=== PATIENT | female | born 2000 | race Caucasian/White ===

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

== ENCOUNTER 2022-02-04 21:47 | Emergency (ER) | payer OTHER, SELFPAY ==
[2022-02-04 22:03] VITALS: BP 134/98; PULSE 129; RESP 16; TEMP 37.6; O2SAT 99; BMI 32.9
[2022-02-04 22:55] LABS: Microscopic, Urine URINE MICROSCOPIC (MICROSCOPIC)
[2022-02-04 22:59] LABS: Appearance,Urine SL CLOUDY (Clear); Bilirubin,Urine Negative (Negative); Blood, Urine TRACE-I (Negative); Color,Urine YELLOW (Yellow); Glucose,Urine (UA) Negative (Negative); Ketones,Urine Negative (Negative); Leukocyte Esterase,Urine 2+ (Negative); Nitrate,Urine POSITIVE (Negative); PH,Urine 6.5 (5.0-8.5); Protein,Urine Negative (Negative); Urobilinogen,Urine 0.2 EU/dl (0.2)
--- NOTE | 2022-02-04 23:00 | PC.NURSE ---
two unsuccessful attempts to obtain IV access.
[2022-02-04 23:05] LABS: Squamous Epithelial Cell,Urine Occasional #/hpf (0-5)
[2022-02-04 23:06] LABS: Bacteria,Urine 3+ /lpf
[2022-02-04 23:40] LABS: Basophils # 0.2 K/mm3 (0-0.2); Basophils % 1.3 % (0.1-2.0); Eosinophils % 0.3 % (0.1-12.0); Hematocrit 39.9 % (37.0-47.0); Hemoglobin 13.8 g/dL (12.2-16.2); Lymphocytes # 0.8 K/mm3 (0.7-4.5); Lymphocytes % 6.1 % (10-50); Mean Corpuscular HGB Conc 34.7 g/dL (31.8-35.4); Mean Corpuscular Hemoglobin 30.4 pg (27.0-31.2); Mean Corpuscular Volume 87.6 fl (81-99); Mean Platelet Volume 7.7 fl (7.4-10.4); Monocytes # 0.2 K/mm3 (0.1-1.0); Monocytes % 1.8 % (1.7-9.3); Neutrophils % 90.4 % (37.0-80.0); Platelet Count 307 K/mm3 (142-424); Red Blood Count 4.55 M/mm3 (4.20-5.40); Red Cell Distribution Width 13.4 % (11.5-17.5); White Blood Count 12.2 K/mm3 (4.5-13.0)
[2022-02-04 23:42] LABS: Chloride 101 mmol/L (98-107); Potassium 3.5 mmoL/L (3.5-5.1); Sodium 136 mmol/L (136-145)
[2022-02-04 23:45] LABS: Alanine Aminotransferase 17 U/L (12-78); Albumin Level 4.5 g/dl (3.5-5.0); Albumin/Globulin Ratio 1.5 (1.1-1.8); Alkaline Phosphatase 130 U/L (38-126); Anion Gap 10.5 mEq/L (5-15); Aspartate Amino Transferase 31 U/L (14-36); Bilirubin,Total 0.6 mg/dl (0.2-1.3); Blood Urea Nitrogen 8 mg/dl (7-17); Carbon Dioxide 28 mmol/L (22.0-30.0); Creatinine Clearance Estimated 231 mL/min (50-200); Estimated Glomerular Filt Rate 157 ml/min (>60); GFR (African American) 190 ML/MIN (>60); Globulin 3.1 g/dL (1.3-3.2); Glucose 95 mg/dl (74-100); Lactic Acid 0.9 mmol/L (0.7-2.1); MANUAL DIFFERENTIAL MANUAL DIFFERENTIAL (MANUAL DIFF); Total Protein,Serum 7.6 g/dl (6.3-8.2)
--- NOTE | 2022-02-04 23:45 | HMH.EDBACK ---
ED Disposition Clinical Impression: Pyelonephritis, SIRS (systemic inflammatory response syndrome) Disposition: Home, Self-Care Condition on Discharge: Good Instructions: DI for Kidney Infection Additional Instructions: fluids and use meds and call pcp for follow up Prescriptions: levoFLOXacin [Levaquin 500mg tab] 500 mg PO DAILY #7 tab Transmission Status: Pending to [facility] #[id number] Referrals: Demetris Levi MD [Primary Care Provider] - - Critical Care Critical Care Time: No Attestation: On 02/04/22, the high probability of a clinically significant, sudden or life threatening deterioration of the following system(s) required my full and direct attention, intervention and personal management. The time I documented below is in addition to time spent performing reported procedures but includes the following listed in this critical care notation. Medical Decision Making - Medical Records Medical records reviewed: Yes: I reviewed the patient's medical records. - Victoriano Inquiry Pt receiving controlled substance: No Vital Signs: 02/04/22 22:03 Temperature 99.6 F Temperature Source Oral Pulse Rate [Right Brachial] 129 H Respiratory Rate 16 Blood Pressure [Right Arm] 134/98 H Blood Pressure Mean [Right Arm] 110 Blood Pressure Source [Right Arm] Automatic Cuff Blood Pressure Position [Right Arm] Sitting 02 Sat by Pulse Oximetry 99 Oxygen Delivery Method Room Air - Lab Data Lab results reviewed: Yes: I reviewed the patient's lab results. Lab Results 02/04/22 22:45: Urine Color Yellow, Urine Appearance Sl cloudy, Urine pH 6.5, Ur Specific Robertson 1.010, Urine Protein Negative, Urine Glucose (UA) Negative, Urine Ketones Negative, Urine Blood Trace-i, Urine Nitrate Positive, Urine Bilirubin Negative, Urine Urobilinogen 0.2, Ur Leukocyte Esterase 2+ A, Urine RBC 3-5, Urine WBC 5-10, Ur Squamous Epith Cells Occasional, Urine Bacteria 3+ 02/04/22 23:27: WBC 12.2, RBC 4.55, Hgb 13.8, Hct 39.9, MCV 87.6, MCH 30.4, MCHC 34.7, RDW 13.4, Plt Count 307, MPV 7.7, Neut % (Auto) 90.4 H, Lymph % (Auto) 6.1 L, Bledsoe % (Auto) 1.8, Eos % (Auto) 0.3, Baso % (Auto) 1.3, Neut # (Auto) 11.0 H, Lymph # (Auto) 0.8, Bledsoe # (Auto) 0.2, Eos # (Auto) 0.0, Baso # (Auto) 0.2 02/04/22 23:27: Sodium 136, Potassium 3.5, Chloride 101, Carbon Dioxide 28, Anion Gap 10.5, BUN 8, Creatinine 0.50 L, Estimated Creat Clear 231, Estimated GFR 157, Est GFR ( Amer) 190, Glucose 95, Calcium 10.0, Total Bilirubin 0.6, AST 31, ALT 17, Alkaline Phosphatase 130 H, C-Reactive Protein 35.6 H, Total Protein 7.6, Albumin 4.5, Globulin 3.1, Albumin/Globulin Ratio 1.5 02/04/22 23:27: Lactate 0.9 02/04/22 23:27: ESR 25 H 02/04/22 23:27: Procalcitonin 0.137 02/04/22 23:27: Serum HCG, Qual Negative Result diagrams: 02/04/22 23:27 02/04/22 23:27 Orders (Tests/Meds): ED MEDICATIONS Generic Name Dose Route Start Last Admin Trade Name Freq PRN Reason Stop Dose Admin Sodium Chloride 1,000 mls @ 999 mls/hr 02/04/22 23:15 02/04/22 23:15 Sod Chlor 0.9% 1000ml Bag IV 02/05/22 00:15 999 mls/hr .Q1H1M SAMSON Administration Ceftriaxone Sodium 1 gm/ 50 mls @ 100 mls/hr 02/04/22 23:45 02/04/22 23:50 Sodium Chloride IV 02/18/22 23:44 100 mls/hr Q24H SAMSON Administration Sodium Chloride 1,000 mls @ 999 mls/hr 02/05/22 00:30 02/05/22 00:25 Sod Chlor 0.9% 1000ml Bag IV 02/05/22 01:30 999 mls/hr .Q1H1M SAMSON Administration Sodium Chloride 10 ml 02/04/22 23:15 Sodium Chloride 0.9% 10ml Flush Syringe IV 03/06/22 23:14 NEEDED PRN Maintain IV Site Discontinued Medications Generic Name Dose Route Start Last Admin Trade Name Freq PRN Reason Stop Dose Admin Acetaminophen/Codeine Phosphate 1 packet 05/11/22 00:57 Acetaminophen 300mg W/Codeine 30mg Take Home Pack (6) PO 02/05/22 00:58 ONCE ONE Iopamidol 75 ml 02/05/22 00:19 02/05/22 00:20 Iopamidol-370 (76%);100ml Bottle IV 02/05/22 00:20
[2022-02-04 23:51] LABS: C-Reactive Protein 35.6 mg/L (0-4)
[2022-02-04 23:53] LABS: HCG Qualitative, Serum Negative (Negative)
--- NOTE | 2022-02-05 | CT_ITS ---
PROCEDURE INFORMATION: Exam: CT Abdomen And Pelvis With Contrast Exam date and time: 02/05/2022 12:11 AM Age: 22 years old Clinical indication: Abdominal pain TECHNIQUE: Imaging protocol: Computed tomography of the abdomen and pelvis with contrast. Radiation optimization: All CT scans at this facility use at least one of these dose optimization techniques: automated exposure control; mA and/or kV adjustment per patient size (includes targeted exams where dose is matched to clinical indication); or iterative reconstruction. Contrast material: ISOVUE; Contrast volume: 75 ml; Contrast route: IV; COMPARISON: No relevant prior studies available. FINDINGS: Liver: Normal. No mass. Gallbladder and bile ducts: Normal. No calcified stones. No ductal dilation. Pancreas: Normal. No ductal dilation. Spleen: Normal. No splenomegaly. Adrenal glands: Normal. No mass. Kidneys and ureters: See Urinary bladder finding. Stomach and bowel: Mild constipation. No colitis. No small bowel obstruction. Appendix: Normal appendix. Intraperitoneal space: Unremarkable. No free air. No significant fluid collection. Vasculature: Unremarkable. No abdominal aortic aneurysm. Lymph nodes: Unremarkable. No enlarged lymph nodes. Urinary bladder: There is bilateral hydronephrosis and ureteral dilatation which could be due to back pressure from the distended urinary bladder. No ureteral stones are seen. There is subtle enhancement of the right renal urothelium which could indicate mild pyelonephritis. Reproductive: 3.7 cm left ovarian cyst. Bones/joints: Unremarkable. No acute fracture. Soft tissues: Unremarkable. IMPRESSION: 1. Subtle right pyelonephritis. 2. 3.7 cm left ovarian cyst. 3. Moderately distended urinary bladder resulting in mild bilateral hydronephrosis and ureteral dilatation but no obstructing stones are identified
[2022-02-05 00:03] LABS: Procalcitonin 0.137 ng/mL (0.0-2.0)
[2022-02-05 00:10] LABS: Erythrocyte Sedimentation Rate 25 mm/hr (0-20)
--- NOTE | 2022-02-05 00:16 | PC.NURSE ---
patient to CT
[2022-02-05 01:14] LABS: Eosinophils % 1 % (0-3); Lymphocytes % 6 % (10-50); Neutrophils % 93 % (42-76); Platelet Estimate Normal; RBC Morphology Normal; Total Cells Counted 100
[2022-02-05 01:19] VITALS: BP 111/73; PULSE 78; RESP 18; TEMP 37.2; O2SAT 98
== END 2022-02-05 01:24 | disposition home or self-care (01) ==
PROVIDERS: Emergency Provider Emergency Medicine; PCP Internal Medicine Adolescent Medicine
DX: N12 Tubulo-interstitial nephritis, not specified as acute or chronic (principal); M54.50 Low back pain, unspecified; R65.10 Systemic inflammatory response syndrome (SIRS) of non-infectious origin without acute organ dysfunction; F17.290 Nicotine dependence, other tobacco product, uncomplicated; R11.0 Nausea; Z79.899 Other long term (current) drug therapy
CPT/HCPCS: 74177; 80053; 81001; 83605; 84145; 84703; 85007; 85025; 85651; 86140; 87040; 87077; 87086; 87088; 87186; 96361; 96374; 96375; 99285; J0696; Q9967

== ENCOUNTER → 2022-07-01 13:43 | Outpatient (CLI) | payer BC, OTHER, SELFPAY ==
--- NOTE | 2022-07-01 13:47 | CA_ITS ---
APPROVED REPORT EXAM: Comprehensive 2D, Doppler, and color-flow Echocardiogram Decision Support Manager: Mirella Shirley, RCS, RVS Ht: 5 ft 3 in Wt: 178lbs BSA: 1.84 BP: 134/98 mmHg Indications: SOB, Smoker 2D Dimensions Aortic Root 2.50 cm F: 2.7 - 3.3 LA Volume 43.40 mL Left Atrium 2.07 cm F: 2.7 - 3.8 LA Volume Index [id number] mL/m2 (M/F) 16-34 LVOT 1.99 cm (M/F) 1.5-2.5 M-Mode Dimensions RVDd 2.40 cm (0.9-2.6) LA Diam 3.05 cm (1.9-4.0) LVDd 4.37 cm (3.5-5.7) Ao Diam 2.58 cm (2.0-3.7) LVDs 3.19 cm (3.5-5.7) IVSd 0.93 cm (0.6-1.1) PWd 0.97 cm (0.6-1.1) EF (Teich) 53.00% EPSs 0.57 cm FS 27.00% EDV (Teich) 86.30 mL TAPSE 1.79 (<1.7) ESV (Teich) 40.60 mL LV Diastology E Decel Time 263.00 (160-240 msec) E/A Ratio 1.42 MED E' 11.60 (< 7 cm/sec) MED A' 8.20 cm/s E'/MED E' Ratio 4.95 (>14) LAT E' 15.00 (<10 cm/sec) LAT A' 9.20 cm/s E/LAT E' Ratio 3.83 (>14) Aortic Valve LVOT Max 87.00 (70-110 cm/s) LVOT VTI 17.26 cm AoV Peak Sergei. 127.00 (50-130 cm/s) AO Peak GR. 6.50 mmHg AO Mean GR. 3.20 (<5 mmHg) AO VTI 23.25 (18-25 cm) HARLAN (VTI) 2.31 (2.5-4.5 cm2) Mitral Valve MV A Velocity 40.00 (40-130 cm/s) E/A Ratio 1.42 MV Decel. Time 263.00 (160-240 ms) Pulmonary Valve PV Peak Velocity 82.00 (50-150 cm/s) Tricuspid Valve TR P. Velocity 187.00 cm/s RAP Estimate 10.00 mmHg RVSP 24.00 mmHg Left Ventricle Left atrium is normal size, left ventricle is normal size overall preserved left ventricular systolic function, estimated ejection fraction 55% with no regional wall motion abnormality, diastolic parameters are within normal range. Right Ventricle Right atrium and right ventricle are normal size and contractility. Aortic Valve Aortic valve is grossly normal there is no aortic stenosis aortic insufficiency. Mitral Valve Mitral valve grossly normal, there is trace mitral regurgitation. Tricuspid Valve Tricuspid valve grossly normal, there is no significant tricuspid regurgitation. Pulmonic Valve Pulmonic valve is poorly visualized. Great Vessels Aortic root is normal size. Inferior vena cava is normal size with normal inspiratory collapse. Pericardium No significant pericardial effusion noted. Conclusion 1. Normal left ventricular size preserved left ventricular systolic function, estimated ejection fraction 55% with no regional wall motion abnormality, diastolic parameters are within normal range. 2. Trace mitral regurgitation. 3. No significant pericardial effusion. 4. Inferior vena cava is normal size with normal inspiratory collapse. Electronically signed by : Seth Vasquez MD 07/02/2022 06:14:06
== END ==
PROVIDERS: PCP Nurse Practitioner Family; Visit Provider Nurse Practitioner Family
DX: R06.02 Shortness of breath (principal); R53.83 Other fatigue
CPT/HCPCS: 93306

== ENCOUNTER 2022-09-29 10:39 | Emergency (ER) | payer BC, OTHER, SELFPAY ==
[2022-09-29 11:40] VITALS: BP 109/81; PULSE 74; RESP 17; TEMP 36.7; O2SAT 98; BMI 34.9
--- NOTE | 2022-09-29 12:06 | EXP.UTC ---
Discharge Plan Disposition Patient Disposition: Home, Self-Care Condition: Good Prescriptions Prescriptions: New amoxicillin 875 mg tablet 875 mg PO Q12H 10 Days Qty: 20 0RF fluticasone propionate [Flonase Allergy Relief] 50 mcg/actuation spray,suspension 1 spray intranasal DAILY Qty: 16 0RF Rx Instructions: administer into each nostril No Action norgestimate-ethinyl estradiol [Tri-Sprintec (28)] 1 EACH tablet See Rx Instructions .Route .COMPLEX Rx Instructions: TAKE 1 TABLET BY MOUTH EVERY DAY levofloxacin 500 MG tablet 500 mg PO DAILY Qty: 7 0RF Referrals Follow up/Referrals: Ambreen Bella APRN [Primary Care Provider] - See instructions Clinical Impressions Clinical Impression: Otitis media Instructions Patient Instructions: Middle Ear Infection Discharge ED Provider: Lolita Peralta [facility] General Stated complaint: LT ear clogged, sore throat, congestion, drainage Mode of Arrival: Ambulatory Source of Information: Patient Limitations: No Limitations Time Seen by Provider: 09/29/22 12:07 Description of Symptoms (Recalled from Triage Doc. by RN): PATIENT C/O FEELING SICK AND LEFT EAR FEELING CLOGGED SINCE THURSDAY HEENT Symptoms (Recalled from RN notes): Yes Resp Symptoms (Recalled from RN notes): No Skin Symptoms (Recalled from RN notes): No MS Symptoms (Recalled from RN notes): No Functional Status (Recalled from RN notes): WNL History of Present Illness Provider Complaint: Patient states that she feels like her left ear is clogged up and hurting and feels like she may have a sinus infection States that she has been having pain and feeling of fullness in her left ear for over a week that has continued to get worse Related Data Home Medications Medication Instructions Recorded Confirmed norgestimate-ethinyl estradiol See Rx Instructions .Route 02/04/22 02/04/22 0.18 mg/0.215mg/0.25mg-35 .COMPLEX control mcg(28)tablet (Tri-Sprintec (28)) Previous Rx's Medication Instructions Recorded levofloxacin 500 mg tablet 500 mg PO DAILY #7 tabs 02/05/22 amoxicillin 875 mg tablet 875 mg PO Q12H 10 days #20 tabs 09/29/22 fluticasone propionate 50 1 spray intranasal DAILY #16 grams 09/29/22 mcg/actuation nasal spray,suspension (Flonase Allergy Relief) Allergies Allergy/AdvReac Type Severity Reaction Status Date / Time No Known Allergies Allergy Verified 07/30/21 11:28 Worker's Comp Is this a Worker's Comp case?: No [facility] Disclaimer: The information contained in this section may have been updated after the patient was seen, as this information can be updated by other users. Medical History (Updated 09/29/22 @ 12:14 by Lolita Peralta APRN) Anxiety Hypertension Migraine Urinary tract infection Social History (Updated 09/29/22 @ 11:52 by Esha Orellana RN) Smoking Status: Current every day smoker tobacco type: e-cigarettes alcohol intake: never current occupational status: employed Travel in the last 8 weeks: None ROS Obtained: Yes All systems reviewed & no additional complaints except as documented and Yes Systems reviewed as appropriate & no additional complaints except as documented Constitutional Constitutional: Reports system reviewed and no additional complaints, except as documented and Reports as per HPI ENT Ears, Nose, Mouth, and Throat: Reports system reviewed and no additional complaints, except as documented, Reports as per HPI, Reports otalgia, Reports nasal congestion and Reports sinus pressure Cardiovascular Cardiovascular: Reports system reviewed and no additional complaints, except as documented and Reports as per HPI Respiratory Respiratory: Reports system reviewed and no additional complaints, except as documented and Reports as per HPI Gastrointestinal Gastrointestingal: Reports system reviewed and no additional complaints, except as documented and as per HPI Physical Exam General General appeara
[2022-09-29 12:15] VITALS: BP 109/81; PULSE 74; RESP 17; TEMP 36.7; O2SAT 98
== END 2022-09-29 12:18 | disposition home or self-care (01) ==
PROVIDERS: Emergency Provider Nurse Practitioner; PCP Nurse Practitioner Family
DX: H66.90 Otitis media, unspecified, unspecified ear (principal)
CPT/HCPCS: 99212; G0463

== ENCOUNTER → 2023-03-03 23:22 | Outpatient (CLI) | payer BC, OTHER, SELFPAY ==
[2023-03-03 19:18] LABS: Basophils # 0.1 K/mm3 (0-0.2); Basophils % 0.9 % (0.1-2.0); Eosinophils # 0.1 K/mm3 (0.0-0.4); Eosinophils % 1.3 % (0.1-12.0); Hematocrit 40.2 % (37.0-47.0); Lymphocytes # 2.5 K/mm3 (0.7-4.5); Lymphocytes % 38.3 % (10-50); Mean Corpuscular HGB Conc 32.5 g/dL (31.8-35.4); Mean Corpuscular Hemoglobin 29.2 pg (27.0-31.2); Mean Corpuscular Volume 89.9 fl (81-99); Mean Platelet Volume 8.7 fl (7.4-10.4); Monocytes # 0.3 K/mm3 (0.1-1.0); Neutrophils # 3.6 K/mm3 (1.8-7.8); Neutrophils % 54.4 % (37.0-80.0); Platelet Count 310 K/mm3 (142-424); Red Blood Count 4.47 M/mm3 (4.20-5.40); Red Cell Distribution Width 13.2 % (11.5-17.5); White Blood Count 6.6 K/mm3 (4.8-10.8)
[2023-03-03 19:51] LABS: Alanine Aminotransferase 22 U/L (12-78); Albumin Level 4.4 g/dl (3.5-5.0); Albumin/Globulin Ratio 1.5 (1.1-1.8); Alkaline Phosphatase 96 U/L (38-126); Anion Gap 13.9 mEq/L (5-15); Aspartate Amino Transferase 31 U/L (14-36); Bilirubin,Total 0.2 mg/dl (0.2-1.3); Blood Urea Nitrogen 8 mg/dl (7-17); Calcium 9.2 mg/dl (8.4-10.2); Carbon Dioxide 23 mmol/L (22.0-30.0); Chloride 105 mmol/L (98-107); Chol/HDL Ratio 2.1 (1-3.5); Cholesterol 201 mg/dl (140-200); Estimated Glomerular Filt Rate 201 ml/min (>60); GFR (African American) 244 ML/MIN (>60); Globulin 2.9 g/dL (1.3-3.2); Glucose 81 mg/dl (74-100); HDL Cholesterol 94 mg/dl (40-60); Potassium 3.9 mmoL/L (3.5-5.1); Sodium 138 mmol/L (136-145); Total Protein,Serum 7.3 g/dl (6.3-8.2); Triglycerides 82 mg/dl (30-150); VLDL Cholesterol 16 mg/dL (0-40)
[2023-03-03 20:09] LABS: Free T4 (Free Thyroxine) 1.13 ng/dl (0.78-2.19)
[2023-03-03 20:10] LABS: 25-OH Vitamin D, Total 26.8 ng/mL (30-100)
[2023-03-03 20:14] LABS: Direct LDL Cholesterol 106.32 mg/dL (100-129)
[2023-03-03 20:22] LABS: Thyroid Stimulating Hormone 0.68 uIU/mL (0.465-4.68)
--- NOTE | 2023-03-13 13:26 | PC.NURSE ---
Patient was scheduled for a HST on 03/13 but cancelled and will call back to reschedule at a later date.
== END ==
PROVIDERS: PCP Emergency Medicine; Visit Provider Emergency Medicine
DX: R68.89 Other general symptoms and signs (principal); E55.9 Vitamin D deficiency, unspecified; Z79.899 Other long term (current) drug therapy
CPT/HCPCS: 80053; 80061; 82306; 84439; 84443; 85025

== ENCOUNTER 2024-04-21 07:52 | Emergency (ER) | payer BC, SELFPAY ==
[2024-04-21 07:53] VITALS: BP 120/92; PULSE 91; RESP 17; TEMP 37.1; O2SAT 99; BMI 34.7
--- NOTE | 2024-04-21 07:58 | PC.NURSE ---
dr mejía at bedside
--- NOTE | 2024-04-21 08:05 | US_ITS ---
PROCEDURE INFORMATION: Exam: US Duplex Artery or Vein of the Abdominal and/or Reproductive Organs, Limited Ovaries Exam date and time: 04/21/2024 8:21 AM Age: 24 years old Clinical indication: Pelvic pain; Additional info: Rlq pain 10/10, vomiting, cysts history TECHNIQUE: Imaging protocol: Real-time duplex ultrasound scan of the arterial or venous flow with hunter scale, color Doppler flow and spectral waveform analysis with image documentation. Limited duplex exam focused on the ovaries. Duplex exam was performed to evaluate for torsion and other vascular conditions. COMPARISON: CT ABDOMEN PELVIS W CON 02/05/2022 12:11 AM FINDINGS: Right ovary/adnexa: Duplex blood flow within the right ovary with color Doppler and spectral waveforms. No evidence of torsion. Left ovary/adnexa: Duplex blood flow within the left ovary with color Doppler and spectral waveforms. No evidence of torsion. IMPRESSION: 1. No evidence of ovarian torsion. 2. See complete ultrasound report below. PROCEDURE INFORMATION: Exam: US Pelvis, Transvaginal, Non-Obstetric Exam date and time: 04/21/2024 8:21 AM Age: 24 years old Clinical indication: Pelvic pain; Additional info: Rlq pain 10/10, vomiting, cysts history TECHNIQUE: Imaging protocol: Real-time transvaginal pelvic (non-obstetric) ultrasound with image documentation. Transvaginal imaging was used for better evaluation of the endometrium, adnexa, and/or cervix. COMPARISON: CT ABDOMEN PELVIS W CON 02/05/2022 12:11 AM FINDINGS: Uterus: Uterus measures 6.5 x 2.5 x 4.0 cm. No myometrial mass. Normal endometrium measuring 6-7 mm. Cervix is unremarkable. Right ovary/adnexa: Right ovary measures 3.4 x 1.8 x 1.9 cm for a volume of 6.3 mL. Small follicles. Blood flow present. No adnexal mass. Left ovary/adnexa: Left ovary measures 3.3 x 2.0 x 1.6 cm for a volume of 5.2 mL. Small follicles. Blood flow present. No adnexal mass. Urinary bladder: Urinary bladder is decompressed. Intraperitoneal space: No free fluid. IMPRESSION: No acute findings.
--- NOTE | 2024-04-21 08:09 | ED_ITS ---
Discharge Plan Disposition Patient Disposition: Home, Self-Care Prescriptions Prescriptions: No Action metformin 500 mg tablet extended release 24 hr 500 mg PO DAILY Qty: 30 2RF phentermine [Adipex-P] 37.5 mg tablet 37.5 mg PO DAILY Qty: 30 0RF Rx Instructions: must administer 30 minutes before or 1-2 hours after breakfast norgestimate-ethinyl estradiol [Tri-Sprintec (28)] 0.18/0.215/0.25 mg-35 mcg (28) tablet 1 tab PO DAILY Qty: 84 0RF Referrals Follow up/Referrals: Ambreen Leung APRN [Primary Care Provider] - See instructions Activity Restrictions/Add. Instructions Additional Instructions/Restrictions: Call your family doctor to establish care for this visit to the emergency department and schedule follow-up within 48 hours to ensure improvement. If you have any worsening of your condition or any other concerning signs or symptoms, return to the emergency department or your primary care doctor for further evaluation. Take Tylenol 1000 mg every 6 hours (4 times daily) and ibuprofen 400 mg every 6 hours (4 times daily) as needed with food and water to prevent GI upset and kidney damage. Clinical Impressions Clinical Impression: Right lower quadrant abdominal pain, Hematuria Stand Alone Forms Stand Alone Forms: Work/School Release Instructions Patient Instructions: DI for Acute Abdominal Pain Print Language Print Language: Kittitian Discharge ED Provider: Bryn Rosenberg General Adult HPI General Chief complaint: Abdominal Pain Stated complaint: right side pain, vomiting Time Seen by Provider: 04/21/24 07:55 History of Present Illness HPI narrative: Please note that above description of symptoms, in this electronic medical record under categorization of recalled from ER triage doctor by RN are reflective of an initial nursing assessment, however, is not reflective of my full history and physical exam that was personally taken and clarified. Consequentially, this preceding description of symptoms, which may include the patient's categorized chief complaint in the EMR, do not reflect my personal clinical impression, and the ultimate description of history of present illness and patient stated complaints should be deferred to this section of the note. Unless stated otherwise or congruent with this section of the note, additional signs, symptoms, or incongruence should be interpreted as inaccurate with my clinical impression. Related Data Previous Rx's ?Medication ?Instructions ?Recorded metformin 500 mg tablet,extended 500 mg PO DAILY #30 tabs 07/14/23 release 24 hr phentermine 37.5 mg tablet 37.5 mg PO DAILY #30 tabs 08/14/23 (Adipex-P) norgestimate-ethinyl estradiol 1 tab PO DAILY #84 tabs 12/18/23 0.18 mg/0.215mg/0.25mg-35 mcg(28)tablet (Tri-Sprintec (28)) Allergies Allergy/AdvReac Type Severity Reaction Status Date / Time No Known Allergies Allergy Verified 08/14/23 10:08 [facility] Disclaimer: The information contained in this section may have been updated after the patient was seen, as this information can be updated by other users. Medical History Anxiety Hypertension Migraine Urinary tract infection Social History (Updated 07/14/23 @ 16:09 by DANY Vila) Smoking Status: Current every day smoker tobacco type: e-cigarettes alcohol intake: never current occupational status: employed Travel in the last 8 weeks: None ROS Obtained: Yes All systems reviewed & no additional complaints except as documented Physical Exam General General appearance: alert and in no apparent distress Head Head exam: atraumatic and normocephalic Eye Eye exam: Present normal appearance, PERRL and EOMI Neck Neck exam: Present normal inspection, full ROM and trachea midline Respiratory Respiratory exam: Present normal lung sounds bilaterally; Absent respiratory distress, wheezes, stridor, accessory muscle use or prolonged expiratory phase Cardiovascular Cardiovascular exam: Present regular rate, normal rhythm and other (Pulses equal symmetric in upper and lower extremities) Abdominal Exam Abdominal exam: Present soft; Absent distention, tenderness, guarding, rebound, rigidity or pulsatile mass Extremities Exam Extremities exam: Absent edema Neurological Exam Neurological exam: Present alert, oriented X3 and CN II-XII intact; Absent motor sensory deficit Skin Skin exam: Present warm and dry; Absent diaphoresis or erythema Medical Decision Making Medical Records Medical records reviewed: Yes I reviewed the patient's medical records. Victoriano Inquiry Pt receiving controlled substance: No Victoriano was queried for this patient: No Vital Signs: 04/21/24 07:53 04/21/24 09:06 04/21/24 09:30 Temperature 98.7 F Temperature Source Oral Pulse Rate 70 48 L Pulse Rate [Left] 91 H Respiratory Rate 17 Blood Pressure 124/95 H 119/84 Blood Pressure [Right Arm] 120/92 H Blood Pressure Mean 104 95 Blood Pressure Mean [Right Arm] 101 Blood Pressure Source [Right Arm] Automatic Cuff 02 Sat by Pulse Oximetry 99 98 99 Oxygen Delivery Method Room Air Room Air Room Air 04/21/24 10:31 Temperature 98.7 F Temperature Source Pulse Rate 68 Pulse Rate [Left] Respiratory Rate 16 Blood Pressure 127/94 H Blood Pressure [Right Arm] Blood Pressure Mean Blood Pressure Mean [Right Arm] Blood Pressure Source [Right Arm] 02 Sat by Pulse Oximetry Oxygen Delivery Method Lab Data Lab Results 04/21/24 07:55: Urine Color Yellow, Urine Appearance Sl cloudy, Urine pH 6.0, Ur Specific Railroad 1.020, Urine Protein Negative, Urine Glucose (UA) Negative, Urine Ketones Negative, Urine Blood 3+, Urine Nitrate Negative, Urine Bilirubin Negative, Urine Urobilinogen 0.2, Ur Leukocyte Esterase Negative, Urine RBC Tntc, Urine WBC Occasional, Ur Squamous Epith Cells None, Urine Bacteria Trace 04/21/24 08:10: WBC 6.3, RBC 4.31, Hgb 13.8, Hct 38.3, MCV 88.9, MCH 31.9 H, M CHC 35.9 H, RDW 13.8, Plt Count 269, MPV 7.8, Neut % (Auto) 62.5, Lymph % (Auto) 30.7, Shoshone % (Auto) 4.4, Eos % (Auto) 1.4, Baso % (Auto) 1.0, Neut # (Auto) 4.0, Lymph # (Auto) 2.0, Shoshone # (Auto) 0.3, Eos # (Auto) 0.1, Baso # (Auto) 0.1, Sodium 140, Potassium 3.7, Chloride 109 H, Carbon Dioxide 23, Anion Gap 11.7, BUN 10, Creatinine 0.60, Estimated Creat Clear 200, Estimated GFR 125, Est GFR ( Amer) 151, Glucose 92, Calcium 9.9, Total Bilirubin 0.4, AST 25, ALT 22, Alkaline Phosphatase 87, Total Protein 7.3, Albumin 4.3, Globulin 3.0, Albumin/Globulin Ratio 1.4, Lipase 98, HCG, Quant < 2 04/21/24 08:10 04/21/24 08:10 Orders (Tests/Meds): ED MEDICATIONS Discontinued Medications Generic Name Dose Route Start Last Admin Trade Name Ryanne PRN Reason Stop Dose Admin Ketorolac Tromethamine 15 mg 04/21/24 09:01 04/21/24 09:20 Ketorolac 30mg/Ml Vial IV 04/21/24 09:02 15 mg ONCE ONE Administration ORDERS Category Date Time Status CT abdomen pelvis wo con Stat Cat Scan 04/21/24 09:01 Completed US transvaginal Stat Exams 04/21/24 08:05 Completed CBC w/Auto Diff [Complete Blood Count Auto Diff] Stat Lab 04/21/24 08:10 Completed CMP [Comprehensive Metabolic Panel] Stat Lab 04/21/24 08:10 Completed HCG,Quantitative Stat Lab 04/21/24 08:10 Completed Lipase Stat Lab 04/21/24 08:10 Completed UA [Urinalysis and Microscopic] Stat Lab 04/21/24 07:55 Completed Medical Decision Narrative: Is a 24-year-old female with history of ovarian cyst, UTI, currently on Depo injection for prevention presenting with right-sided abdominal pain. Patient states that around 6 AM today, 04/21, she was awakened from sleep by severe pain in her right lower quadrant/right side. It was 10 out of 10 and initial onset, associated with nonbloody, nonbilious vomiting. It lasted for about 45 minutes to an hour, then completely abated without intervention. She states last time she had pain that was similar to this was a ruptured ovarian cyst on the right side. States that this was worse in intensity and different and that it woke her up from sleep. No fevers, chills, dysuria, hematuria, frequency, urgency, change in bowel habits, trauma to the area, overlying skin changes, or any other concerns. Patient states there is no chance of and no history of STDs. History was obtained via conversation with patient. On arrival, patient hemodynamically stable, alert, oriented x4, appropriate, GCS 15, moving all extremities spontaneously, pupils equal and reactive to light. Full physical exam performed and significant for very well-appearing female no acute distress. Nontachycardic, normotensive, appears to be resting comfortably. Patient's abdomen is soft, nontender, nondistended. No tenderness to deep palpation on my exam. No flank tenderness. No overlying skin changes. Differential includes PUD, gastritis, enteritis, gastroenteritis, pancreatitis, SBO, colitis, diverticulitis, nephrolithiasis, UTI, , cholecystitis, appendicitis, hepatitis, torsion, among others. Patient placed on continuous cardiac monitoring and continuous pulse ox with initial blood pressure 120/92, heart rate 91, saturation 99% on room air. Patient was given nothing for symptomatic management and correction of underlying abnormalities, although Toradol and Zofran offered. Shortly after giving urine sample, patient states that when she was urinating, a large blood clot passed and she has never had that before. Urinated without issue or other symptoms. Patient states she is currently completely asymptomatic and declining meds at this time. Workup independently interpreted and significant for normal white blood count, normal hemoglobin, normal platelet count. Nonactionable CBC overall. Kidney function normal, LFTs normal. Lipase negative, hCG negative. Urinalysis with blood, no evidence of infection. Vaginal ultrasound without acute torsion or ovarian pathology. No free fluid in the cul-de-sac. CT of the abdomen pelvis withNo evidence of stone, patient's right ureter is mildly dilated as compared to the left. No stone in the bladder. Appendix appears normal. See radiology read for full review of final results. On reevaluation, patient resting comfortably, states that she has a cramping pain. Toradol administered. On reevaluation, patient states that she has no pain or discomfort at this time. Given patient presentation, workup, history, this most likely represents resolved nephrolithiasis. Given negative Plata sign, no history of overt right upper quadrant pain, normal LFTs likely to be cholecystitis or choledocholithiasis. Also less likely to be perihepatitis given history, workup and exam. Because patient has hematuria, I do feel it is also less likely to be ovarian torsion given negative ultrasound and no free fluid. Because patient at baseline without signs or symptoms of clinical decompensation, deemed appropriate for discharge. Results were relayed to patient who voiced understanding and were agreeable to outpatient management and follow up. I discussed my clinical impression with patient and answered all questions. At this time, the evidence for any other entities in the differential is insufficient to warrant any further testing or ED observation. This was explained as well. Advisory was given that persistent or worsening symptoms require further evaluation. I confirmed the understanding of this discussion. Machine Oiler disclaimer Much of this encounter note is an electronic donor technician spoken language to printed text. Electronic donor technician of the spoken language may permit errors. Although I have reviewed the note, some errors may still exist. Critical Care Critical Care Time Critical Care Time: No
[2024-04-21 08:10] LABS: Microscopic, Urine URINE MICROSCOPIC (MICROSCOPIC)
[2024-04-21 08:14] LABS: Appearance,Urine SL CLOUDY (Clear); Bilirubin,Urine Negative (Negative); Blood, Urine 3+ (Negative); Color,Urine YELLOW (Yellow); Glucose,Urine (UA) Negative (Negative); Ketones,Urine Negative (Negative); Leukocyte Esterase,Urine Negative (Negative); Nitrate,Urine Negative (Negative); Protein,Urine Negative (Negative); Urobilinogen,Urine 0.2 EU/dl (0.2)
[2024-04-21 08:21] LABS: Bacteria,Urine Trace /lpf; RBC,Urine TNTC #/hpf (0-3); WBC,Urine Occasional #/hpf (0-3)
--- NOTE | 2024-04-21 08:25 | PC.NURSE ---
pt is at ultrasound
[2024-04-21 08:29] LABS: Alanine Aminotransferase 22 U/L (12-78); Albumin Level 4.3 g/dl (3.5-5.0); Albumin/Globulin Ratio 1.4 (1.1-1.8); Alkaline Phosphatase 87 U/L (38-126); Anion Gap 11.7 mEq/L (5-15); Aspartate Amino Transferase 25 U/L (14-36); Bilirubin,Total 0.4 mg/dl (0.2-1.3); Blood Urea Nitrogen 10 mg/dl (7-17); Calcium 9.9 mg/dl (8.4-10.2); Carbon Dioxide 23 mmol/L (22.0-30.0); Chloride 109 mmol/L (98-107); Creatinine Clearance Estimated 200 mL/min (50-200); Estimated Glomerular Filt Rate 125 ml/min (>60); GFR (African American) 151 ML/MIN (>60); Glucose 92 mg/dl (74-100); Lipase 98 U/L (23-300); Potassium 3.7 mmoL/L (3.5-5.1); Sodium 140 mmol/L (136-145); Total Protein,Serum 7.3 g/dl (6.3-8.2)
[2024-04-21 08:31] LABS: Basophils # 0.1 K/mm3 (0-0.2); Eosinophils # 0.1 K/mm3 (0.0-0.4); Eosinophils % 1.4 % (0.1-12.0); Hematocrit 38.3 % (37.0-47.0); Hemoglobin 13.8 g/dL (12.2-16.2); Lymphocytes % 30.7 % (10-50); Mean Corpuscular HGB Conc 35.9 g/dL (31.8-35.4); Mean Corpuscular Hemoglobin 31.9 pg (27.0-31.2); Mean Corpuscular Volume 88.9 fl (81-99); Mean Platelet Volume 7.8 fl (7.4-10.4); Monocytes # 0.3 K/mm3 (0.1-1.0); Monocytes % 4.4 % (1.7-9.3); Neutrophils % 62.5 % (37.0-80.0); Platelet Count 269 K/mm3 (142-424); Red Blood Count 4.31 M/mm3 (4.20-5.40); Red Cell Distribution Width 13.8 % (11.5-17.5); White Blood Count 6.3 K/mm3 (4.8-10.8)
--- NOTE | 2024-04-21 08:32 | PC.NURSE ---
pt arrived back to room
[2024-04-21 08:51] LABS: HCG,Quantitative < 2 mIU/ml (0-5.42)
--- NOTE | 2024-04-21 09:01 | CT_ITS ---
FINAL REPORT TECHNIQUE: Axial images through the abdomen and pelvis were performed without contrast. This study was performed with techniques to keep radiation doses as low as reasonably achievable, (ALARA). Individualized dose reduction techniques using automated exposure control or adjustment of mA and/or kV according to the patient's size were employed. CLINICAL HISTORY: concern for R sided stone, pain COMPARISON: 02/05/2022 FINDINGS: Abdomen: Lung bases are clear. Liver, spleen, pancreas and adrenal glands have a normal CT appearance in their limited unenhanced state. The gallbladder is normal. The kidneys show no stone disease or obstruction. No obvious renal mass is present. No ureteral stones are present. Pelvis: The appendix is normal. The uterus and ovaries are unremarkable. No distal ureteral stones are seen. Bladder is unremarkable. No fluid collection or adenopathy is seen. IMPRESSION: No evidence of upper urinary tract stone disease or obstruction Reviewed, Interpreted and Dictated by Mirta Estes MD Transcribed by Lilly Monique Authenticated and [facility]
[2024-04-21 09:06] VITALS: BP 124/95; PULSE 70; O2SAT 98
[2024-04-21] MEDS: KETOROLAC 30MG/ML VIAL 15 MG IV (09:20)
--- NOTE | 2024-04-21 09:23 | PC.NURSE ---
pt returned from ct
[2024-04-21 09:30] VITALS: BP 119/84; PULSE 48; O2SAT 99
--- NOTE | 2024-04-21 10:19 | PC.NURSE ---
DR VALDES AT BEDSIDE TO UPDATE PT
[2024-04-21 10:31] VITALS: BP 127/94; PULSE 68; RESP 16; TEMP 37.1
== END 2024-04-21 10:33 | disposition home or self-care (01) ==
PROVIDERS: Emergency Provider Emergency Medicine; PCP Nurse Practitioner Family
DX: R10.31 Right lower quadrant pain (principal); R31.9 Hematuria, unspecified
CPT/HCPCS: 74176; 76830; 80053; 81001; 83690; 84702; 85025; 96374; 99285; J1885

== ENCOUNTER 2025-05-14 08:34 | Outpatient (CLI) | payer OTHER, SELFPAY ==
--- OUTSIDE RECORDS SUMMARY | 2025-05-16 08:59 | XMS_ITS | Clinical Summary ---
Author Organization Healthcare Address [address] [id number] Care Team Providers Care Apparel Embroidery Digitizer Name Role Phone Ambreen Bella APRN Primary Care Provider [phone] Allergies No known active allergies Medications propranolol (Inderal) 40 MG tablet Take 40 mg by mouth 2 (two) times a day. 11/25/2022 Active Tri-Sprintec 0.18/0.215/0.25 MG-35 MCG tablet Take 1 tablet by mouth 1 (one) time each day. 11/25/2022 Active Social History Tobacco Use Types Packs/Day Years Used Date Smoking Tobacco: Never Smokeless Tobacco: Never Alcohol Use Standard Drinks/Week Comments Never 0 (1 standard drink = 0.6 oz pur e alcohol) PHQ-2 Answer Date Recorded Patient Health Questionnaire-2 Score 0 12/03/2022 PHQ-2A Answer Date Recorded Patient Health Questionnaire-2 Score 0 12/03/2022 Comments No Sex and Gender Information Value Date Recorded Sex Assigned at Not on file Legal Sex Female 6:52 PM EDT Gender Identity Not on file Sexual Orientation Not on file Last Filed Vital Signs Vital Sign Reading Time Taken Comments Blood Pressure 126/88 12/03/2022 9:42 AM EST Pulse 53 12/03/2022 9:42 AM EST Temperature 36.6 C (97.8 F) 12/03/2022 9:23 AM EST Respiratory Rate 18 12/03/2022 9:23 AM EST Oxygen Saturation 99% 12/03/2022 9:23 AM EST Inhaled Oxygen Concentration - - Weight 86.5 kg (190 lb 11.2 oz) 12/03/2022 9:23 AM EST Height 157.5 cm (5' 2 ) 12/03/2022 9:23 AM EST Body Mass Index 34.88 12/03/2022 9:23 AM EST Plan of Treatment Health Maintenance Due Date Last Done Comments [facility]-Depression Screening 2002 [facility]-/Child/Adol SDOH Screenings 2002 HPV Vaccines (1 - 3-dose series) 2017 [facility]-Hepatitis A Vaccines (2 of 2 - 2-dose series) 05/15/2019 11/15/2018 [facility]- SDOH Screenings 01/22/2020 [facility]-Adult SDOH Screenings 01/22/2020 [facility]-Pap Smear 2023 [facility]-DTaP,Tdap,and Td Vaccines (2 - Td or Tdap) 05/09/2023 05/09/2013 [id number] Vaccine (1 - season) 2024 [facility]-Influenza Vaccine (#1) 2025 11/15/2018 [facility]-Zoster Vaccines (1 of 2) 01/22/2052 05/09/2013, 01/23/2005 [facility]-HIB Vaccines Completed 03/28/2004, 03/2002, 2002 [facility]-Hepatitis B Vaccines Completed 004, 2002, 2002 [facility]-IPV Vaccines Completed 04/20/2006, 03/2003, 2002, Additional history exists [facility]-Varicella Vaccines Completed 05/09/2013, 2004 [facility]-Pneumococcal Vaccine: Pediatrics (0 to 5 Years) and At-Risk Patients (6 to 49 Years) Aged Out No longer eligible based on patient's age to complete this topic [facility]-Rotavirus Vaccines Aged Out No lo nger eligible based on patient's age to complete this topic [place] [id number] [employer] [facility] MEDICAID [place] Care Teams Apparel Embroidery Digitizer Relationship Specialty Start Date End Date Ambreen Bella APRN [address] [facility] [address] [place] [address] PCP - General 02/08/21
--- OUTSIDE RECORDS SUMMARY | 2025-05-16 08:59 | XMS_ITS | Clinical Summary ---
Author Organization [facility] Address [address] [place] [address] Phone Care Team Providers Care Branch Operation Evaluation Manager Name Role Phone Unavailable Primary Care Provider Unavailabl e Allergies No known active allergies Medications norgestimate-eth inyl estradiol (ORTHO TRI-CYCLEN;TRI-S PRINTEC) 0.18/0.215/0.25 mg-35 mcg (28) Oral Tablet Take 1 Tab by mouth daily. Active Social History Tobacco Use Types Packs/Day Years Used Date Smoking Tobacco: Never Smokeless Tobacco: Never Alcohol Use Standard Drinks/Week Comments Never 0 (1 standard drink = 0.6 oz pur e alcohol) AUDIT-C Answer Date Recorded Frequency of Alcohol Consumption Never 08/08/2019 Average Number of Drinks Not on file 019 Frequency of Binge Drinking Not on file 07/29 Comments No Sex and Gender Information Value Date Recorded Sex Assigned at Not on file Legal Sex Female 4:22 PM EST Gender Identity Not on file Sexual Orientation Not on file Obstetrics History Last Filed Vital Signs Vital Sign Reading Time Taken Comments Blood Pressure 152/91 08/08/2019 4:34 PM EST Pulse 106 08/08/2019 4:34 PM EST Temperature 36.8 C (98.3 F) 08/08/2019 4:34 PM EST Respiratory Rate 18 08/08/2019 4:34 PM EST Oxygen Saturation 100% 08/08/2019 4:34 PM EST Inhaled Oxygen Concentration - - Weight 83.5 kg (184 lb) 08/08/2019 4:34 PM EST Height 157.5 cm (5' 2 ) 08/08/2019 4:34 PM EST Body Mass Index 33.65 08/08/2019 4:34 PM EST Plan of Treatment Health Maintenance Due Date Last Done Comments Annual Wellness Exam 2005 HPV (1 - 3-dose series) 2017 Meningococcal B Vaccine (1 o f 2 - Standard) 2018 DTaP/TDaP/Td (1 - Tdap) 2021 Hepatitis B Vaccine (1 of 3 - 19+ 3-dose series) 2021 Cervical Cancer Screening 2023 Pap Smear 2023 COVID-19 Vaccine (1 - 2023-2 5 season) 2024 Influenza Vaccine (#1) 2025 Pneumococcal Vaccine 0-49 Aged Out No longer eligible based on patient's age to complete this topic Insurance [facility] [id number]
== END 2025-05-14 23:59 | disposition home or self-care (01) ==
LOC: LAB.DROPOF 05-16 08:38
PROVIDERS: PCP Nurse Practitioner Family; Visit Provider Nurse Practitioner Family
DX: R31.9 Hematuria, unspecified (principal)
CPT/HCPCS: 87086

== ENCOUNTER 2025-07-14 20:16 | Emergency (ER) | payer OTHER, SELFPAY ==
[2025-07-14 20:19] VITALS: BP 178/113; PULSE 62; RESP 18; TEMP 36.8; O2SAT 100; BMI 39.4
--- NOTE | 2025-07-14 20:26 | ED_ITS ---
Discharge Plan Disposition Patient Disposition: Home, Self-Care Condition: Good Prescriptions Prescriptions: New oxycodone 5 mg tablet 5 mg PO .every 6 hours PRN (Reason: pain) Qty: 6 0RF amoxicillin-pot clavulanate 875-125 mg tablet 1 tab PO BID 10 Days Qty: 20 0RF No Action nitrofurantoin monohyd/m-cryst [Macrobid] 100 mg capsule 100 mg PO Q12H 5 Days Qty: 10 0RF Rx Instructions: must administer with a meal/food medroxyprogesterone 150 mg/mL suspension See Rx Instructions .ROUTE .COMPLEX Qty: 1 3RF Dose Instruction: INJECT 1 ML INTRAMUSCULARLY ONCE EVERY 90 DAYS Rx Instructions: INJECT 1 ML INTRAMUSCULARLY ONCE EVERY 90 DAYS Referrals Follow up/Referrals: Ambreen Leung APRN [Primary Care Provider, Medical] - See instructions Activity Restrictions/Add. Instructions Additional Instructions/Restrictions: The antibiotics as prescribed until you follow-up with your dentist. I have sent you with oxycodone which you can take in addition to Tylenol and Motrin for significant pain. I have sent you with the dental walk-in clinic information. Return to the emergency department for any significant swelling severe pain is uncontrolled or if you have any other acute concerns. [facility] is a walk-in clinic for patients, 14 years of age and older, needing immediate care due to dental pain and swelling. Clinic registration is open?7:45 - 10:30 a.m., Thursday through Thursday?(closed on holidays and other select dates - see below). Patients are seen on a first-come, first-served basis and may experience wait times. Services are only available for a select number of patients each day. [address] [place] [id number] Phone number: [phone] Clinical Impressions Clinical Impression: Pain, dental Print Language Print Language: Samoan Discharge ED Provider: Jessica Mcelroy Adult HPI General Chief complaint: Dental/Oral Stated complaint: toothache Time Seen by Provider: 07/14/25 20:25 Mode of Arrival: Ambulatory Source of Information: Patient Description of Symptoms (Recalled from ER Triage Doc. by RN): Pt presents for evaluation of dental pain x 2 days History of Present Illness HPI narrative: Patient is a 25-year-old female with no significant past medical history who presents to the emergency department with dental pain. Patient states that her pain has acutely worsened over the last couple days. Patient denies any fevers or trauma. Patient states that she has a dentist but is unable to follow-up until Thursday. Patient has no other medical problems. Does not take any daily medications. Related Data Previous Rx's ?Medication ?Instructions ?Recorded medroxyprogesterone 150 mg/mL See Rx Instructions .Rou te 02/15/25 intramuscular suspension .COMPLEX #1 mL nitrofurantoin 100 mg PO Q12H 5 days #10 ca ps 05/14/25 monohydrate/macrocrystals 100 mg capsule (Macrobid) amoxicillin 875 mg-potassium 1 tab PO BID 10 days #20 tabs 07/14/25 clavulanate 125 mg tablet oxycodone 5 mg tablet 5 mg PO .every 6 hours PRN p ain #6 07/14/25 tabs Allergies Allergy/AdvReac Type Severity Reaction Status Date / Time No Known Allergies Allergy Verified 05/14/25 12:25 [facility] Disclaimer: The information contained in this section may have been updated after the patient was seen, as this information can be updated by other users. Medical History Anxiety Urinary tract infection Migraine Hypertension Surgical History No significant past surgical history Social History Smoking Status: Current every day smoker tobacco type: e-cigarettes alcohol intake: never current occupational status: employed Travel in the last 8 weeks?: None Have you lived/traveled outside US in past 30 days?: No Contact w/someone who lives/traveled outside US past 30 days?: No Exposure to someone with infectious disease in past 14 days?: No Do you have a fever (greater than 100.4 F or 38 C)?: No Have you tested positive for COVID-19?: No Exposed to someone with COVID-19 in past 14 days?: No Do you have a sore throat?: No Do you have a cough?: No Do you have any weakness?: No Do you have any diarrhea?: No Are you experiencing any unusual bleeding?: No Do you have any muscle aches/pain?: No Do you have any abdominal pain?: No Are you experiencing loss of taste or smell?: No Other Medical History Have you received the Flu Vaccine for this season: No Have you received the Pneumonia Vaccine: No ROS Obtained: Yes All systems reviewed & no additional complaints except as documented and Yes Systems reviewed as appropriate & no additional complaints except as documented Physical Exam General General appearance: alert and in no apparent distress Head Head exam: atraumatic, normocephalic and normal inspection Eye Eye exam: Present normal appearance, PERRL and EOMI; Absent scleral icterus ENT ENT exam: Present normal exam, normal external ear exam and other (Tooth number 9 very sensitive to the touch, no daquan-apical abscess, no facial swelling) Neck Neck exam: Present normal inspection and full ROM Chest Chest inspection: Present normal inspection and symmetric chest wall rise Respiratory Respiratory exam: Present normal lung sounds bilaterally; Absent respiratory distress or wheezes Cardiovascular Cardiovascular exam: Present regular rate, normal rhythm and normal heart sounds Abdominal Exam Abdominal exam: Present soft and distention; Absent tenderness, guarding or rebound Extremities Exam Extremities exam: Present normal inspection and full ROM Back Exam Back exam: Present normal inspection and full ROM Neurological Exam Neurological exam: Present alert and oriented X3 Psychiatric Psychiatric exam: Present normal affect and normal mood Skin Skin exam: Present warm and dry Medical Decision Making Medical Records Medical records reviewed: Yes I reviewed the patient's medical records. Screening: Per USPSTF and CDC recommendations, given the prevalence of disease in our region, it is our hospital?s policy to screen for HIV and viral Hepatitis for all patients aged 18 and over and those with ongoing risk factors. Victoriano Inquiry Pt receiving controlled substance: No Vital Signs: 07/14/25 20:19 07/14/25 21:19 Temperature 98.3 F 97.9 F Temperature Source Temporal Artery Scan Oral Pulse Rate 60 Pulse Rate [Right] 62 Respiratory Rate 18 20 Blood Pressure 133/90 Blood Pressure [Right Arm] 178/113 H Blood Pressure Mean [Right Arm] 134 02 Sat by Pulse Oximetry 100 Oxygen Delivery Method Room Air Room Air Lab Data Lab results reviewed: Yes I reviewed the patient's lab results. Orders (Tests/Meds): ED MEDICATIONS Discontinued Medications Generic Name Dose Route Start Last Admin Trade Name Freq PRN Reason Stop Dose Admin Amoxicillin/Clavulanate Potassium 1 each 07/14/25 20:50 07/14/25 20:58 Amoxicillin/Clavulanate Potassium 875/125mg Tablet PO 07/14/25 20:51 1 each ONCE ONE Administration Lidocaine HCl 10 ml 07/14/25 20:50 07/14/25 20:58 Lidocaine 1% 10ml Mdv SUBCUT 07/14/25 20:51 10 ml ONCE ONE Administration Oxycodone HCl 5 mg 07/14/25 20:50 07/14/25 20:58 Oxycodone 5mg Immediate Release Tablet PO 07/14/25 20:51 5 mg ONCE ONE Administration Medical Decision Narrative: Patient is a 25-year-old female with no significant past medical history who presented to the emergency department with dental pain. On arrival, patient was hemodynamically stable with unremarkable vital signs Differential includes but not limited to: Nerve injury, dental trauma, periapical abscess, dental abscess, amongst others. On exam, patient had no evidence of periapical abscess, there was no swelling. No facial swelling. No trismus. Patient's tooth was very sensitive to the touch. Patient states that she has a partial bridge in place and she has her real tooth underneath. States that she is able to follow-up with her dentist on Thursday. Patient was offered a dental block which patient agreed to. Was given oxycodone and Augmentin in the emergency department and given prescriptions for outpatient management. Patient was advised to follow-up with her dentist and given the dental emergency clinic information as well. Return precautions were discussed and patient was otherwise discharged home in stable condition. Procedures Nerve Block Nerve Block 1: Time out performed: No Local Anesthetic: lidocaine 1% Amount of anesthesia used (mL): 3 Nerve Blocks: other (dental) Intraoral Nerve Block: superior alveolar Procedure Successful: Yes Patient Tolerated Procedure: well Complications: none Critical Care Critical Care Time Critical Care Time: No
--- OUTSIDE RECORDS SUMMARY | 2025-07-14 20:32 | XMS_ITS | Clinical Summary ---
Author Organization [facility] Address [address] [place] [address] Phone Care Team Providers Care Oriental Rug Stretcher Name Role Phone Unavailable Primary Care Provider [...] COVID-19 Vaccine (1 - 2023-2 5 season) 2025 Influenza Vaccine (#1) 2025 Pneumococcal Vaccine 0-49 Aged Out No longer eligible based on patient's age to complete this topic Insurance SU[place] [id number] [facility] [place]
--- OUTSIDE RECORDS SUMMARY | 2025-07-14 20:32 | XMS_ITS | Clinical Summary ---
Author Organization Healthcare Address [address] [id number] Care Team Providers Care Sweatband Decorating Machine Operator Name Role Phone Ambreen Bella APRN Primary Care Provider [phone] Allergies No known active allergies Medications propranolol [...] Date Last Done Comments [facility]-Depression Screening 2002 [facility]-Infant/Child/Adol SDOH Screenings 2002 HPV Vaccines (1 - 3-dose series) 2017 [facility]-Hepatitis A Vaccines (2 of 2 - 2-dose series) 05/15/2019 11/15/2018 [facility]- SDOH Screenings 01/22/2020 [facility]-Adult SDOH Screenings 01/22/2020 [facility]-Pap Smear 2023 [facility]-DTaP,Tdap,and Td Vaccines (2 - Td or Tdap) 05/09/2023 05/09/2013 [id number] Vaccine (1 - season) 2025 [facility]-Influenza Vaccine (#1) 2025 11/15/2018 [facility]-Zoster Vaccines [...] this [place] [address] [place] [address] [employer] [facility] MEDICAID [place] Care Teams Sweatband Decorating Machine Operator Relationship Specialty Start Date End Date Ambreen Bella APRN [address] [facility] [address] [place] [address] PCP - General 02/08/21
[2025-07-14] MEDS: LIDOCAINE 1% 10ML MDV 10 ML SUBCUT (20:58)
[2025-07-14] MEDS: OXYCODONE 5MG IMMEDIATE RELEASE TABLET 5 MG PO (20:58)
[2025-07-14] MEDS: AMOXICILLIN/CLAVULANATE POTASSIUM 875/125MG TABLET 1 EACH PO (20:58)
[2025-07-14 21:19] VITALS: BP 133/90; PULSE 60; RESP 20; TEMP 36.6; O2SAT 100
== END 2025-07-14 21:24 | disposition home or self-care (01) ==
PROVIDERS: Emergency Provider Student in an Organized Health Care Education/Training Program; PCP Nurse Practitioner Family
DX: K08.89 Other specified disorders of teeth and supporting structures (principal); F17.210 Nicotine dependence, cigarettes, uncomplicated
CPT/HCPCS: 99283; J2003

== ENCOUNTER 2025-08-01 13:37 | Outpatient (CLI) | payer OTHER, SELFPAY ==
--- OUTSIDE RECORDS SUMMARY | 2025-08-03 13:46 | XMS_ITS | Clinical Summary ---
Author Organization Healthcare Address [address] [id number] Care Team Providers Care Digital Coordinator Name Role Phone Ambreen Bella APRN Primary Care Provider [phone] Allergies No known active allergies Medications propranolol [...] (2 - Td or Tdap) 05/09/2023 05/09/2013 [id number] Vaccine (1 - season) 2025 [facility]-Influenza Vaccine [...] this [place] [address] [address] [employer] [facility] MEDICAID [place] Care Teams Digital Coordinator Relationship Specialty Start Date End Date Ambreen Bella APRN [address] [facility] [address] [place] [address] PCP - General 02/08/21
--- OUTSIDE RECORDS SUMMARY | 2025-08-03 13:46 | XMS_ITS | Clinical Summary ---
Author Organization [facility] Address [address] [place] [address] Phone Care Team Providers Care Music Researcher Name Role Phone Unavailable Primary Care Provider [...] Pap Smear 2023 COVID-19 Vaccine (1 - 2024-2 6 season) 2025 Influenza Vaccine (#1) 2025 Pneumococcal Vaccine 0-49 Aged Out No longer eligible based on patient's age to complete this topic Insurance [place] [id number] [facility] [address]
== END 2025-08-01 23:59 ==
LOC: LAB.DROPOF 08-03 13:38
PROVIDERS: PCP Nurse Practitioner Family; Visit Provider Nurse Practitioner
DX: N30.01 Acute cystitis with hematuria (principal)
CPT/HCPCS: 87086